=== PATIENT | female | born 1990 | race Caucasian/White ===

== ENCOUNTER 2016-11-27 20:53 | Inpatient (IN) | payer BC, OTHER ==
[~2016-11-27] VITALS: Ht 157.5 cm; Wt 59.1 kg
--- NOTE | ~2016-11-27 | O ---
[place], [place] OPERATIVE NOTE NAME: [id number] UNIT #: [id number] ROOM: 410 DOCTOR: DEX NORTON MD BIRTHDATE: [birth year] DOS: 11/28/2016 PREOPERATIVE DIAGNOSIS: Acute appendicitis. POSTOPERATIVE DIAGNOSIS: Acute appendicitis. PROCEDURE: Laparoscopic appendectomy. SURGEON: Dex Norton M.D. [employer] DIPPER: [id number]. ANESTHESIA: General with endotracheal intubation. INDICATIONS: This is a 26-year-old lady admitted with right lower quadrant abdominal pain. A CAT scan showed acute appendicitis. It was decided to take the patient to the operating room for a laparoscopic possible open appendectomy. The procedure and its complications were explained to the patient in detail preoperatively. Complications that were discussed included but were not limited to bleeding, infection, hematoma/seroma/abscess formation, prolonged postoperative pain, damage to underlying vital structures and incisional hernia formation. She agreed to proceed. DESCRIPTION OF PROCEDURE: After identifying the patient, the patient was brought to the operating suite and laid in the supine position. After time-out procedure was called, general anesthesia was administered and she was intubated. Becker catheter was placed into the urinary bladder and the parts were then painted and draped in the usual sterile fashion. a curvilinear incision was made below the umbilicus. The skin and the subcutaneous tissue were incised. The fascia was incised and 2 stay sutures were taken. The peritoneum was opened and a 12 mm Dahlia port was introduced and a pneumoperitoneum was created. Under direct vision, a left lower quadrant incision of 10 mm and the suprapubic incision of 5 mm was made and appropriate size ports were introduced. The patient was then placed in a Trendelenburg right side up position. The cecum and the appendix were identified. The appendix was found to be acutely inflamed. It was held up with the help of an Endo-Ja forceps. The base of the appendix and the mesoappendix was then stapled across with the help of Endo-ANTHONY vascular stapler. The appendix was placed in a specimen bag and removed from the peritoneal cavity and sent for histopathological diagnosis. The base of the appendix was then visualized and there was no bleeding seen. At this point, the suprapubic port and the left lower quadrant port were removed and there were no bleeding seen. The umbilical port was also removed and the pneumoperitoneum was decompressed. The stay sutures were tied together. An additional [id number] stitch was taken with the help of 0 Vicryl to approximate the fascia. The edges of the skin were approximated with 4-0 Vicryl after the edges were infiltrated with 1% plain lidocaine. Becker catheter was removed. Dressing was placed. The patient tolerated the procedure well and was extubated uneventfully and brought back to the recovery room in a stable fashion. There were no complications. Dr. Dex Norton, the attending surgeon, was present throughout the operating case. [place], [place] OPERATIVE NOTE NAME: VANNESA RENEE UNIT #: [id number] ROOM: 410 DOCTOR: DEX NORTON MD BIRTHDATE: [birth year] Dex Norton MD CM:OPRECORD:OPERATIVE NOTE 1320 [id number] DEX NORTON MD 11/28/16 1446 interface
[~2016-11-27 20:53] MED LIST: ANTIBIOTIC O500 U/GM TP; BACTRIM DS 8001 TA1 PO; CLINDAMYCIN HC300 MG PO; FLEXERIL5 MG PO; LIDEX 0.05% CRE15 GM T; MOTRIN800 MG PO; PREDNISONE10 MG PO; PYRIDIUM200 MG PO; VISTARIL25 MG PO; ZITHROMAX Z PA250 MG PO
[2016-11-27 21:07] VITALS: BP 123/82
[2016-11-27 21:23] LABS: BASO % 0.2 % (0.0-1.0); EOS # 0.1 10*3/uL (0.0-0.4); EOS % 1.1 % (1.0-4.0); HEMATOCRIT 45.2 % (37.0-47.0); HEMOGLOBIN 15.2 g/dl (12.0-16.0); LYMPH # 3.1 10*3/uL (1.3-4.4); MEAN CELL VOLUME 87.8 fl (81.0-99.0); MEAN CORPUSCULAR HGB 29.5 pg (27.0-31.0); MEAN CORPUSCULAR HGB CONC 33.6 g/dl (33.0-37.0); MEAN PLATELET VOLUME 8.8 fl (9.6-12.3); MONO # 0.6 10*3/uL (0.1-1.0); MONO % 4.9 % (3.0-9.0); NEUT # 8.9 10*3/uL (2.3-7.9); NEUT % 69.6 % (47.0-73.0); PLATELET COUNT AUTOMATED 312 10*3/uL (130-400); RED BLOOD COUNT 5.15 10*6/uL (4.10-5.10); WHITE BLOOD COUNT 12.8 10*3/uL (4.8-10.8)
[2016-11-27 21:37] LABS: ALBUMIN 3.7 gm/dl (3.1-4.5); ALKALINE PHOSPHATASE 105 U/L (45-117); BILIRUBIN, TOTAL 0.3 mg/dl (0.2-1.0); BUN 13 mg/dl (7-24); CARBON DIOXIDE 24 mmol/L (21-32); CHLORIDE 105 mmol/L (98-107); EST GLOM FILT AFRICAN AMERICAN > 60 ml/min; GLUCOSE 95 mg/dL (65-99); POTASSIUM 3.6 mmol/L (3.5-5.1); SGOT/AST 15 IU/L (3-35); SGPT/ALT 17 U/L (12-78); SODIUM 140 mmol/L (136-145); TOTAL PROTEIN 7.4 gm/dL (6.4-8.2)
[2016-11-27 22:06] LABS: BILIRUBIN NEGATIVE (NEGATIVE); BLOOD NEGATIVE (NEGATIVE); CLARITY CLOUDY (CLEAR); COLOR YELLOW (YELLOW); GLUCOSE NEGATIVE (NEGATIVE); KETONE NEGATIVE (NEGATIVE); LEUKO ESTERASE TRACE (NEGATIVE); NITRITE NEGATIVE (NEGATIVE); PROTEIN NEGATIVE (NEGATIVE); UROBILINOGEN 0.2 E.U./dl (0.2-1.0)
[2016-11-27 22:21] LABS: BACTERIA 4+; URINE REFLEX COMMENT YES (NO)
[2016-11-28] VITALS (10 sets, daily range): BP systolic 106–123; BP diastolic 59–88
[2016-11-28 06:23] LABS: BASO % 0.2 % (0.0-1.0); EOS # 0.1 10*3/uL (0.0-0.4); EOS % 1.1 % (1.0-4.0); LYMPH # 2.9 10*3/uL (1.3-4.4); LYMPH % 27.3 % (27.0-41.0); MEAN CORPUSCULAR HGB 29.7 pg (27.0-31.0); MEAN CORPUSCULAR HGB CONC 33.4 g/dl (33.0-37.0); MEAN PLATELET VOLUME 9.4 fl (9.6-12.3); MONO # 0.7 10*3/uL (0.1-1.0); MONO % 7.1 % (3.0-9.0); NEUT # 6.7 10*3/uL (2.3-7.9); PLATELET COUNT AUTOMATED 268 10*3/uL (130-400); RED BLOOD COUNT 4.37 10*6/uL (4.10-5.10); RED CELL DISTRI WIDTH 12.9 % (0-14.5); WHITE BLOOD COUNT 10.5 10*3/uL (4.8-10.8)
[2016-11-28 06:26] LABS: HEMATOCRIT 38.9 % (37.0-47.0)
[2016-11-28 06:34] LABS: ALBUMIN 2.8 gm/dl (3.1-4.5); ALKALINE PHOSPHATASE 83 U/L (45-117); BILIRUBIN, TOTAL 0.6 mg/dl (0.2-1.0); BUN 12 mg/dl (7-24); CARBON DIOXIDE 22 mmol/L (21-32); CHLORIDE 112 mmol/L (98-107); CPK 52 U/L (26-192); EST GLOM FILT AFRICAN AMERICAN > 60 ml/min; GLUCOSE 89 mg/dL (65-99); MAGNESIUM 1.7 mg/dL (1.5-2.1); PHOSPHOROUS 3.1 mg/dL (2.5-4.9); POTASSIUM 3.9 mmol/L (3.5-5.1); SGOT/AST 12 IU/L (3-35); SGPT/ALT 14 U/L (12-78); SODIUM 141 mmol/L (136-145); TOTAL PROTEIN 5.7 gm/dL (6.4-8.2)
[2016-11-28 06:35] LABS: FREE T4 0.93 ng/dl (0.76-1.46)
[2016-11-28 06:40] LABS: CKMB < 0.5 ng/ml (0.5-3.6); TROPONIN I < 0.015 ng/ml (<0.045)
[2016-11-28 06:51] LABS: PROTHROMBIN TIME 10.7 SECONDS (9.0-12.4)
[2016-11-28] MEDS ORDERED: IBU800 MG PO (16:59)
[2016-11-28] MEDS ORDERED: VITAMIN D-32000 UNI1 PO (17:00)
== END 2016-11-28 17:58 | disposition home or self-care (01) | DRG 341 ==
LOC: ED 20:53 → 4E 23:41 → EDHOLD 23:41 → 4E 11-28 00:06
PROVIDERS: Hospitalist; Nurse Practitioner Family
PROC: 0DTJ4ZZ Resection of Appendix, Percutaneous Endoscopic Approach (ICD-10-PCS; principal; 2016-11-28)
DX: K35.80 Unspecified acute appendicitis (principal); E43 Unspecified severe protein-calorie malnutrition; E87.8 Other disorders of electrolyte and fluid balance, not elsewhere classified; N39.0 Urinary tract infection, site not specified; E83.51 Hypocalcemia; Z87.440 Personal history of urinary (tract) infections; Z88.1 Allergy status to other antibiotic agents; Z79.899 Other long term (current) drug therapy; Z72.0 Tobacco use; Z71.6 Tobacco abuse counseling; Z68.23 Body mass index [BMI] 23.0-23.9, adult

== ENCOUNTER → 2018-09-23 | Outpatient (CLI) | payer OTHER ==
[~2018-09-23] MED LIST changes: +AMINOPHYLLIN200 MG PO; +IBU800 MG PO; +Ondansetron4 MG PO; +VITAMIN D-32000 UNI1 PO
[2018-09-23 19:02] LABS: BASO % 0.6 % (0.0-1.0); EOS # 0.1 10*3/uL (0.0-0.4); EOS % 1.4 % (1.0-4.0); HEMATOCRIT 46.9 % (37.0-47.0); HEMOGLOBIN 15.5 g/dl (12.0-16.0); LYMPH # 2.6 10*3/uL (1.3-4.4); LYMPH % 37.5 % (27.0-41.0); MEAN CELL VOLUME 91.1 fl (81.0-99.0); MEAN CORPUSCULAR HGB 30.1 pg (27.0-31.0); MEAN PLATELET VOLUME 9.2 fl (9.6-12.3); MONO # 0.4 10*3/uL (0.1-1.0); MONO % 5.2 % (3.0-9.0); NEUT # 3.9 10*3/uL (2.3-7.9); NEUT % 55.2 % (47.0-73.0); PLATELET COUNT AUTOMATED 327 10*3/uL (130-400); RED BLOOD COUNT 5.15 10*6/uL (4.10-5.10)
[2018-09-23 19:32] LABS: ALBUMIN 3.9 gm/dl (3.1-4.5); BUN 11 mg/dl (7-24); CHLORIDE 103 mmol/L (98-107); CREATININE 0.79 mg/dL (0.55-1.02); IRON 91 ug/dL (50-170); POTASSIUM 3.7 mmol/L (3.5-5.1); SGOT/AST 31 IU/L (3-35); SGPT/ALT 44 U/L (12-78); SODIUM 136 mmol/L (136-145); TOTAL IRON BINDING CAPACITY 338 ug/dl (250-450)
[2018-09-23 19:40] LABS: ALKALINE PHOSPHATASE 109 U/L (45-117); FREE T4 1.03 ng/dl (0.76-1.46); TOTAL PROTEIN 8.1 gm/dL (6.4-8.2)
[2018-09-23 19:50] LABS: VITAMIN D, 25-HYDROXY 34.7 ng/mL (30-100)
[2018-09-24 07:06] LABS: THYROID PEROXIDASE (TPO) AB 13 IU/mL (0-34)
[2018-09-24 08:10] LABS: HEPATITIS B SURFACE AG Negative (Negative); HEPATITIS C VIRUS ANTIBODY <0.1 s/co (0.0-0.9); RHEUMATOID ARTHRITIS FACTOR <10.0 IU/mL (0.0-13.9)
[2018-09-24 15:05] LABS: t-TRANSGLUTAMINASE (tTG) IGA <2 U/mL (0-3); t-TRANSGLUTAMINASE (tTG) IgG 3 U/mL (0-5)
[2018-09-24 17:09] LABS: EBV NUCLEAR ANTIGEN IGG 35.6 U/mL (0.0-17.9); ENDOMYSIAL ANTIBODY IgA Negative (Negative); EPSTEIN-BARR VCA IGM AB <36.0 U/mL (0.0-35.9)
[2018-09-24 22:04] LABS: CCP ANTIBODIES IGG/IGA 4 units (0-19)
[2018-09-25 16:08] LABS: CMV QNT Negative (Negative)
[2018-09-28 17:08] LABS: CMV PCR QUAL Negative (Negative)
[2018-09-30 16:11] LABS: DQ2 Positive (.); DQ8 Positive (.)
== END | disposition home or self-care (01) ==
LOC: LAB 17:59
PROVIDERS: Nurse Practitioner Family
DX: F48.9 Nonpsychotic mental disorder, unspecified (principal); R59.9 Enlarged lymph nodes, unspecified; R53.83 Other fatigue; E55.9 Vitamin D deficiency, unspecified; R71.8 Other abnormality of red blood cells; G47.19 Other hypersomnia; D72.810 Lymphocytopenia; R70.0 Elevated erythrocyte sedimentation rate

== ENCOUNTER → 2019-07-19 | Outpatient (CLI) | payer OTHER ==
[~2019-07-19] MED LIST changes: +IMODIUM A-D2 M2 PO; +ZOFRAN4 MG PO
== END ==
LOC: RAD 10:28
DX: M54.81 Occipital neuralgia (principal)

== ENCOUNTER 2019-08-06 12:50 | Emergency (ER) | payer OTHER ==
[~2019-08-06] VITALS: Ht 157.4 cm; Wt 66.7 kg
[~2019-08-06 12:50] MED LIST changes: -IMODIUM A-D2 M2 PO; -ZOFRAN4 MG PO
[2019-08-06 12:56] VITALS: BP 109/79
[2019-08-06 13:18] LABS: HEMATOCRIT 51.4 % (37.0-47.0); HEMOGLOBIN 17.3 g/dl (12.0-16.0); MEAN CELL VOLUME 90.8 fl (81.0-99.0); MEAN CORPUSCULAR HGB 30.6 pg (27.0-31.0); MEAN CORPUSCULAR HGB CONC 33.7 g/dl (33.0-37.0); MEAN PLATELET VOLUME 8.7 fl (9.6-12.3); PLATELET COUNT AUTOMATED 307 10*3/uL (130-400); RED BLOOD COUNT 5.66 10*6/uL (4.10-5.10); RED CELL DISTRI WIDTH 12.5 % (0-14.5); WHITE BLOOD COUNT 10.6 10*3/uL (4.8-10.8)
[2019-08-06 13:34] LABS: ALBUMIN 4.3 gm/dl (3.1-4.5); ALKALINE PHOSPHATASE 108 U/L (45-117); BUN 21 mg/dl (7-24); CHLORIDE 112 mmol/L (98-107); SGOT/AST 16 IU/L (3-35); SGPT/ALT 29 U/L (12-78); SODIUM 141 mmol/L (136-145); TOTAL PROTEIN 8.8 gm/dL (6.4-8.2)
[2019-08-06 13:39] LABS: BETA-HCG, QUANT < 1.0 mIU/mL (1-3)
[2019-08-06 13:42] LABS: PLATELET SUFFICIENCY NORMAL (NORMAL); TOTAL CELLS COUNTED 100 #CELLS
[2019-08-06] MEDS ORDERED: IMODIUM A-D2 M2 PO (14:59)
[2019-08-06] MEDS ORDERED: ZOFRAN4 MG PO (14:59)
== END 2019-08-06 15:10 | disposition home or self-care (01) ==
LOC: ED 12:50
PROVIDERS: Emergency Medicine
DX: K52.9 Noninfective gastroenteritis and colitis, unspecified (principal); R11.2 Nausea with vomiting, unspecified; Z88.1 Allergy status to other antibiotic agents; Z88.2 Allergy status to sulfonamides; Z79.2 Long term (current) use of antibiotics; Z79.899 Other long term (current) drug therapy; Z87.891 Personal history of nicotine dependence

== ENCOUNTER → 2020-02-07 | Outpatient (CLI) | payer OTHER ==
[~2020-02-07] MED LIST changes: +IMODIUM A-D2 M2 PO; +ZOFRAN4 MG PO
== END | disposition home or self-care (01) ==
LOC: COVID19 02:04
DX: Z03.818 Encounter for observation for suspected exposure to other biological agents ruled out (principal)

== ENCOUNTER 2021-03-11 20:17 | Emergency (ER) | payer OTHER ==
[~2021-03-11] VITALS: Ht 157.4 cm; Wt 59.0 kg
[2021-03-11 20:40] VITALS: BP 137/91
[2021-03-11 22:25] LABS: BILIRUBIN 1+ (Negative); BLOOD 3+ (Negative); CLARITY Cloudy (Clear); COLOR Orange (Yellow); GLUCOSE Negative (Negative); KETONE Negative (Negative); NITRITE Positive (Negative)
[2021-03-11 23:00] LABS: LEUKO ESTERASE 3+ (Negative)
[2021-03-11 23:01] LABS: BACTERIA 4+; RBC 21-30 rbc/hpf (0-2); WBC TNTC wbc/hpf (0-5)
[2021-03-11] MEDS ORDERED: CIPRO500 MG PO (23:04)
== END 2021-03-11 23:15 | disposition home or self-care (01) ==
LOC: ED 20:17
PROVIDERS: Internal Medicine
DX: N39.0 Urinary tract infection, site not specified (principal); F17.200 Nicotine dependence, unspecified, uncomplicated; Z88.1 Allergy status to other antibiotic agents; Z88.2 Allergy status to sulfonamides; Z79.2 Long term (current) use of antibiotics; Z79.899 Other long term (current) drug therapy

== ENCOUNTER → 2021-06-17 | Outpatient (CLI) | payer OTHER ==
[~2021-06-17] MED LIST changes: +CIPRO500 MG PO
[2021-06-17 17:45] LABS: BASO # 0.1 10*3/uL (0.0-0.1); BASO % 0.5 % (0.0-1.0); EOS # 0.1 10*3/uL (0.0-0.4); HEMATOCRIT 45.5 % (37.0-47.0); LYMPH # 2.6 10*3/uL (1.3-4.4); LYMPH % 25.2 % (27.0-41.0); MEAN CELL VOLUME 92.3 fl (81.0-99.0); MEAN CORPUSCULAR HGB 30.6 pg (27.0-31.0); MEAN CORPUSCULAR HGB CONC 33.2 g/dl (33.0-37.0); MEAN PLATELET VOLUME 8.8 fl (9.6-12.3); MONO # 0.7 10*3/uL (0.1-1.0); NEUT # 6.8 10*3/uL (2.3-7.9); PLATELET COUNT AUTOMATED 326 10*3/uL (130-400); RED BLOOD COUNT 4.93 10*6/uL (4.10-5.10); WHITE BLOOD COUNT 10.2 10*3/uL (4.8-10.8)
[2021-06-17 18:00] LABS: ALBUMIN 3.5 gm/dl (3.1-4.5); ALKALINE PHOSPHATASE 83 U/L (45-117); BUN 17 mg/dl (7-24); CHLORIDE 107 mmol/L (98-107); POTASSIUM 4.4 mmol/L (3.5-5.1); SGOT/AST 18 IU/L (3-35); SGPT/ALT 22 U/L (12-78); SODIUM 138 mmol/L (136-145); TOTAL PROTEIN 7.9 gm/dL (6.4-8.2)
== END | disposition home or self-care (01) ==
LOC: LAB 17:20
PROVIDERS: ATTEND Student in an Organized Health Care Education/Training Program
DX: R53.83 Other fatigue (principal); R59.1 Generalized enlarged lymph nodes

== ENCOUNTER → 2021-09-09 | Outpatient (CLI) | payer OTHER ==
[2021-09-09 14:56] LABS: BASO % 0.2 % (0.0-1.0); EOS # 0.1 10*3/uL (0.0-0.4); EOS % 0.5 % (1.0-4.0); HEMATOCRIT 48.4 % (37.0-47.0); LYMPH # 3.4 10*3/uL (1.3-4.4); LYMPH % 25.1 % (27.0-41.0); MEAN CORPUSCULAR HGB 30.8 pg (27.0-31.0); MEAN CORPUSCULAR HGB CONC 33.5 g/dl (33.0-37.0); MEAN PLATELET VOLUME 8.4 fl (9.6-12.3); MONO # 0.9 10*3/uL (0.1-1.0); MONO % 6.7 % (3.0-9.0); NEUT # 9.1 10*3/uL (2.3-7.9); NEUT % 67.2 % (47.0-73.0); PLATELET COUNT AUTOMATED 334 10*3/uL (130-400); RED BLOOD COUNT 5.26 10*6/uL (4.10-5.10); RED CELL DISTRI WIDTH 12.6 % (0-14.5); WHITE BLOOD COUNT 13.5 10*3/uL (4.8-10.8)
[2021-09-09 15:12] LABS: ALBUMIN 3.5 gm/dl (3.1-4.5); ALKALINE PHOSPHATASE 85 U/L (45-117); BUN 14 mg/dl (7-24); CHLORIDE 106 mmol/L (98-107); CREATININE 0.88 mg/dL (0.55-1.02); SGOT/AST 7 IU/L (3-35); SGPT/ALT 19 U/L (12-78); SODIUM 137 mmol/L (136-145); TOTAL PROTEIN 7.7 gm/dL (6.4-8.2)
== END | disposition home or self-care (01) ==
LOC: LAB 14:34
PROVIDERS: ATTEND Nurse Practitioner Family
DX: L57.8 Other skin changes due to chronic exposure to nonionizing radiation (principal)

== ENCOUNTER → 2022-01-31 | Outpatient (CLI) | payer OTHER | END | disposition home or self-care (01) | LOC: RAD 10:57 | PROVIDERS: ATTEND Family Medicine | DX: M75.21 Bicipital tendinitis, right shoulder (principal) ==

== ENCOUNTER 2022-09-03 15:26 | Emergency (ER) | payer OTHER ==
[~2022-09-03] VITALS: Ht 157.4 cm; Wt 61.2 kg
[2022-09-03 15:50] LABS: HEMATOCRIT 41.7 % (37.0-47.0); MEAN CELL VOLUME 92.9 fl (81.0-99.0); MEAN CORPUSCULAR HGB 31.2 pg (27.0-31.0); MEAN CORPUSCULAR HGB CONC 33.6 g/dl (33.0-37.0); MEAN PLATELET VOLUME 8.6 fl (9.6-12.3); PLATELET COUNT AUTOMATED 301 10*3/uL (130-400); RED BLOOD COUNT 4.49 10*6/uL (4.10-5.10); RED CELL DISTRI WIDTH 12.3 % (0-14.5); WHITE BLOOD COUNT 5.2 10*3/uL (4.8-10.8)
[2022-09-03 15:53] LABS: MANUAL DIFF REFLEX YES
[2022-09-03 16:04] LABS: ALKALINE PHOSPHATASE 74 U/L (46-116); BUN 8 mg/dl (9-23); CHLORIDE 103 mmol/L (98-107); POTASSIUM 3.3 mmol/L (3.4-5.1); SGPT/ALT 143 U/L (10-49); TOTAL PROTEIN 6.8 gm/dL (6.0-8.0)
[2022-09-03 16:37] LABS: PLATELET SUFFICIENCY NORMAL (NORMAL); TOTAL CELLS COUNTED 100 #CELLS
[2022-09-03 19:40] VITALS: BP 108/77
[2022-09-03 19:47] LABS: BILIRUBIN 2+ (Negative); BLOOD Negative (Negative); CLARITY Cloudy (Clear); COLOR Dark Yellow (Yellow); GLUCOSE Negative (Negative); KETONE Trace (Negative); LEUKO ESTERASE Trace (Negative); NITRITE Positive (Negative); PH 5.5 (4.5-8.0); SPECIFIC GRAVITY >= 1.030 (1.001-1.030)
[2022-09-03 20:04] LABS: BACTERIA 1+; CALCIUM OXALATE CRYSTALS 2+; MUCOUS 1+
[2022-09-03] MEDS ORDERED: CEFUROXIME AXE500 MG PO (20:58)
== END 2022-09-03 21:02 | disposition home or self-care (01) ==
LOC: ED 15:26
PROVIDERS: Physician Assistant
DX: K52.9 Noninfective gastroenteritis and colitis, unspecified (principal); N39.0 Urinary tract infection, site not specified; Z88.1 Allergy status to other antibiotic agents; Z88.2 Allergy status to sulfonamides; Z88.8 Allergy status to other drugs, medicaments and biological substances; Z98.890 Other specified postprocedural states; F14.10 Cocaine abuse, uncomplicated; F11.10 Opioid abuse, uncomplicated; F13.10 Sedative, hypnotic or anxiolytic abuse, uncomplicated; F15.10 Other stimulant abuse, uncomplicated; F41.9 Anxiety disorder, unspecified

== ENCOUNTER 2022-11-15 23:13 | Emergency (ER) | payer BC, OTHER ==
[~2022-11-15] VITALS: Ht 165.1 cm; Wt 63.5 kg
[~2022-11-15 23:13] MED LIST changes: +CEFUROXIME AXE500 MG PO
[2022-11-15 23:22] VITALS: BP 129/74
== END 2022-11-15 23:47 | disposition home or self-care (01) ==
LOC: ED 23:13
DX: K59.00 Constipation, unspecified (principal); Z88.1 Allergy status to other antibiotic agents; Z88.8 Allergy status to other drugs, medicaments and biological substances; Z87.891 Personal history of nicotine dependence

== ENCOUNTER 2023-06-24 23:10 | Emergency (ER) | payer OTHER ==
[~2023-06-24] VITALS: Ht 157.4 cm; Wt 62.1 kg
[2023-06-24 23:20] VITALS: BP 137/83
[2023-06-24] MEDS ORDERED: NAPROXEN250 MG PO (23:53)
== END 2023-06-25 00:04 | disposition home or self-care (01) ==
LOC: ED 23:10
DX: S90.31XA Contusion of right foot, initial encounter (principal); F41.9 Anxiety disorder, unspecified; Z88.1 Allergy status to other antibiotic agents; Z88.8 Allergy status to other drugs, medicaments and biological substances; Z88.2 Allergy status to sulfonamides; Z98.890 Other specified postprocedural states; F17.200 Nicotine dependence, unspecified, uncomplicated; F14.10 Cocaine abuse, uncomplicated; F11.10 Opioid abuse, uncomplicated; F15.10 Other stimulant abuse, uncomplicated; F13.10 Sedative, hypnotic or anxiolytic abuse, uncomplicated; W22.03XA Walked into furniture, initial encounter; Y93.89 Activity, other specified; Y92.009 Unspecified place in unspecified non-institutional (private) residence as the place of occurrence of the external cause; Y99.8 Other external cause status

== ENCOUNTER 2024-01-06 11:56 | Emergency (ER) | payer OTHER ==
[~2024-01-06] VITALS: Wt 61.2 kg
[~2024-01-06 11:56] MED LIST changes: +NAPROXEN250 MG PO
[2024-01-06 12:12] VITALS: BP 125/80
[2024-01-06] MEDS ORDERED: SODIUM CHLORIDE 0.9% 1,000 ML IV ONE (12:50)
[2024-01-06 13:12] LABS: BASO % 0.5 % (0.0-1.0); EOS # 0.1 10*3/uL (0.0-0.4); HEMATOCRIT 47.5 % (37.0-47.0); LYMPH # 1.8 10*3/uL (1.3-4.4); LYMPH % 22.4 % (27.0-41.0); MEAN CELL VOLUME 90.5 fl (81.0-99.0); MEAN CORPUSCULAR HGB 30.7 pg (27.0-31.0); MEAN CORPUSCULAR HGB CONC 33.9 g/dl (33.0-37.0); MEAN PLATELET VOLUME 8.6 fl (9.6-12.3); MONO # 0.3 10*3/uL (0.1-1.0); MONO % 3.9 % (3.0-9.0); NEUT # 5.7 10*3/uL (2.3-7.9); NEUT % 71.9 % (47.0-73.0); PLATELET COUNT AUTOMATED 347 10*3/uL (130-400); RED BLOOD COUNT 5.25 10*6/uL (4.10-5.10); RED CELL DISTRI WIDTH 12.4 % (0-14.5); WHITE BLOOD COUNT 7.9 10*3/uL (4.8-10.8)
[2024-01-06 13:33] LABS: ALKALINE PHOSPHATASE 80 U/L (46-116); BUN 9 mg/dl (9-23); CHLORIDE 106 mmol/L (98-107); LIPASE 31 U/L (12-53); POTASSIUM 4.1 mmol/L (3.4-5.1); SGPT/ALT 14 U/L (5-49); TOTAL PROTEIN 7.7 gm/dL (6.0-8.0)
[2024-01-06 14:08] LABS: BILIRUBIN Negative (Negative); BLOOD Negative (Negative); CLARITY Clear (Clear); COLOR Yellow (Yellow); GLUCOSE Negative (Negative); KETONE Negative (Negative); LEUKO ESTERASE Negative (Negative); NITRITE Negative (Negative); PH 6.5 (4.5-8.0); UROBILINOGEN 0.2 E.U./dl (0.0-1.0); WBC 0-2 wbc/hpf (0-5)
[2024-01-06] MEDS ORDERED: CEPHALEXIN500 M1 PO (14:23)
[2024-01-06] MEDS ORDERED: CEPHALEXIN 500 MG CAP PO ONE (14:25)
== END 2024-01-06 14:40 | disposition home or self-care (01) ==
LOC: ED 11:56
PROVIDERS: Nurse Practitioner Family
DX: A08.4 Viral intestinal infection, unspecified (principal); Z20.822 Contact with and (suspected) exposure to COVID-19; I88.1 Chronic lymphadenitis, except mesenteric; F17.200 Nicotine dependence, unspecified, uncomplicated; Z88.8 Allergy status to other drugs, medicaments and biological substances; Z88.1 Allergy status to other antibiotic agents; Z88.2 Allergy status to sulfonamides; Z79.899 Other long term (current) drug therapy

== ENCOUNTER → 2024-04-28 | Outpatient (CLI) | payer OTHER ==
[~2024-04-28] MED LIST changes: +CEPHALEXIN500 M1 PO
== END | disposition home or self-care (01) ==
LOC: RAD 14:53
PROVIDERS: ATTEND Nurse Practitioner Family
DX: M25.511 Pain in right shoulder (principal); M25.512 Pain in left shoulder

== ENCOUNTER 2025-01-23 14:05 | Emergency (ER) | payer OTHER ==
[~2025-01-23] VITALS: Ht 157.4 cm; Wt 61.2 kg
[2025-01-23 14:21] VITALS: BP 128/86
[2025-01-23] MEDS ORDERED: VALACYCLOVIR500 M1 PO (14:24)
[2025-01-23] MEDS ORDERED: IOHEXOL 300 MG/ML 100 ML VIAL IV ONE (14:55)
[2025-01-23 15:32] LABS: BASO # 0.0 10*3/uL (0.0-0.1); BASO % 0.4 % (0.0-1.0); EOS # 0.2 10*3/uL (0.0-0.4); EOS % 2.2 % (1.0-4.0); MEAN CELL VOLUME 91.3 fl (81.0-99.0); MEAN CORPUSCULAR HGB 30.4 pg (27.0-31.0); MEAN PLATELET VOLUME 8.3 fl (9.6-12.3); MONO # 0.5 10*3/uL (0.1-1.0); MONO % 7.2 % (3.0-9.0); NEUT # 4.3 10*3/uL (2.3-7.9); NEUT % 62.3 % (47.0-73.0); NUCLEATED RED BLOOD CELL 0.0 % (0.0-0.0); NUCLEATED RED BLOOD CELL 0.0 10*3/uL (0.0-0.0); PLATELET COUNT AUTOMATED 281 10*3/uL (130-400); RED CELL DISTRI WIDTH 12.0 % (0-14.5)
[2025-01-23 16:03] LABS: BUN 10 mg/dl (9-23); SGPT/ALT 15 U/L (5-49)
[2025-01-23] MEDS ORDERED: CEPHALEXIN500 M1 PO (18:30)
[2025-01-23] MEDS ORDERED: CEPHALEXIN 500 MG CAP PO ONE (18:50)
== END 2025-01-23 18:42 | disposition home or self-care (01) ==
LOC: ED 14:05
PROVIDERS: Nurse Practitioner Family
DX: R59.0 Localized enlarged lymph nodes (principal); F17.200 Nicotine dependence, unspecified, uncomplicated; F14.10 Cocaine abuse, uncomplicated; F11.10 Opioid abuse, uncomplicated; Z79.899 Other long term (current) drug therapy; Z88.0 Allergy status to penicillin; Z88.1 Allergy status to other antibiotic agents; Z88.2 Allergy status to sulfonamides; Z88.8 Allergy status to other drugs, medicaments and biological substances

== ENCOUNTER 2025-04-24 11:20 | Emergency (ER) | payer OTHER ==
[~2025-04-24] VITALS: Ht 157.4 cm; Wt 61.2 kg
[~2025-04-24 11:20] MED LIST changes: +VALACYCLOVIR500 M1 PO
[2025-04-24 11:40] VITALS: BP 130/77
[2025-04-24 12:20] LABS: BASO # 0.0 10*3/uL (0.0-0.1); BASO % 0.7 % (0.0-1.0); EOS # 0.2 10*3/uL (0.0-0.4); EOS % 2.9 % (1.0-4.0); MEAN CELL VOLUME 92.2 fl (81.0-99.0); MEAN CORPUSCULAR HGB 30.4 pg (27.0-31.0); MEAN PLATELET VOLUME 8.7 fl (9.6-12.3); MONO # 0.4 10*3/uL (0.1-1.0); MONO % 6.9 % (3.0-9.0); NEUT # 3.3 10*3/uL (2.3-7.9); NEUT % 55.9 % (47.0-73.0); NUCLEATED RED BLOOD CELL 0.0 % (0.0-0.0); NUCLEATED RED BLOOD CELL 0.0 10*3/uL (0.0-0.0); PLATELET COUNT AUTOMATED 284 10*3/uL (130-400); RED CELL DISTRI WIDTH 11.7 % (0-14.5)
[2025-04-24 12:43] LABS: BUN 9 mg/dl (9-23); SGPT/ALT 10 U/L (5-49)
[2025-04-24] MEDS ORDERED: Dicyclomine Hydrochloride 20 MG/10 ML OSYR PO STA (12:58)
[2025-04-24] MEDS ORDERED: MG-AL HYDROXIDE/SIMETICONE 30 ML UDC PO STA (12:58)
[2025-04-24] MEDS ORDERED: CETIRIZINE10 MG PO (13:53)
[2025-04-24] MEDS ORDERED: PROTONIX40 MG PO (13:53)
[2025-04-24] MEDS ORDERED: ANUSOL-HC25 MG R (13:53)
== END 2025-04-24 13:58 | disposition home or self-care (01) ==
LOC: ED 11:20
PROVIDERS: Nurse Practitioner Family
DX: K21.9 Gastro-esophageal reflux disease without esophagitis (principal); K64.9 Unspecified hemorrhoids; H68.001 Unspecified Eustachian salpingitis, right ear; F17.200 Nicotine dependence, unspecified, uncomplicated; F41.9 Anxiety disorder, unspecified; Z87.440 Personal history of urinary (tract) infections; Z88.1 Allergy status to other antibiotic agents; Z88.8 Allergy status to other drugs, medicaments and biological substances; Z88.5 Allergy status to narcotic agent